=== PATIENT | male | born 1985 | race Two or more races ===

== ENCOUNTER 2020-09-23 14:32 | Emergency (ER) | payer BC ==
[~2020-09-23] VITALS: Ht 180.3 cm; Wt 113.9 kg
[2020-09-23] MEDS ORDERED: DICLOFENAC POTA50 MG PO (18:43)
[2020-09-23] MEDS ORDERED: TYLENOL325 MG (18:43)
== END 2020-09-23 19:29 | disposition home or self-care (01) ==
LOC: ER 14:32
DX: S62.631A Displaced fracture of distal phalanx of left index finger, initial encounter for closed fracture (principal); X50.0XXA Overexertion from strenuous movement or load, initial encounter; Y93.B2 Activity, push-ups, pull-ups, sit-ups; Y92.821 Forest as the place of occurrence of the external cause; Y99.8 Other external cause status